=== PATIENT | female | born 1965 | race Caucasian/White ===

== ENCOUNTER → 2017-04-20 | Day surgery (SDC) | payer OTHER ==
[~2017-04-20] MED LIST: AMLODIPINE BESY10 MG PO; ASPIR-LOW81 MG PO; ASPIRIN325 MG PO; ASPIRIN81 MG; BUSPIRONE HCL7.5 MG PO; CLOPIDOGREL75 MG PO; EFFIENT10 MG PO; EPHEDRINE SULFATE INJ 50 MG/10 ML SYR ONE; FENTANYL CITRATE/PF 100MCG/2 ML INJ ONE; FUROSEMIDE40 MG PO; GABAPENTIN100 MG PO; HYOSCYAMINE SULFATE 0.5 MG/ML AMP ONE; INSULIN LISPRO SQ; INSULIN REGULAR, HUMAN 100 UNIT/1 ML 3ML VIAL ONE; Iron PO; LIDOCAINE HCL 2% LOCAL INJ 5 ML SDV VIAL INJ ONE; LIPITOR20 MG PO; LISINOPRIL40 MG PO; MELOXICAM7.5 MG PO; METFORMIN HCL500 MG PO; MIDAZOLAM HCL 2 MG/2 ML VIAL ONE; NOVOLOG MI100 UNITS/ SQ; NOVOLOG100 UNITS1 SQ; OMEPRAZOLE40 MG PO; PANTOPRAZOLE SO40 MG PO; PIOGLITAZONE45 MG PO; PLAVIX75 MG PO; PROMETHAZINE HC25 M1 PO; PROPOFOL IV EMULSION 10 MG/ML 50 ML VIAL ONE; SUCRALFATE1 GM PO; TOPROL XL50 MG PO; TRAMADOL 50 MG; TRICOR145 MG PO; TYLENOL # 31 EA PO; TYLENOL WITH C1 EACH PO; XANAX0.5 MG; [UNRECOGNIZED DRUG - OTHER] SQ
--- NOTE | 2017-04-20 09:40 | Operative Report ---
DATE OF PROCEDURE: April 20, 2017 REFERRING PHYSICIAN: Harrison Quinteros MD PROCEDURE PERFORMED: Colonoscopy with polypectomy and biopsies. INDICATIONS FOR COLONOSCOPY: Colorectal cancer screening, personal history of colon cancer, diarrhea, fecal incontinence. MEDICATION: Patient was done under MAC. Please see anesthesiologist's note. PROCEDURE: With the patient in the left lateral decubitus position, the flexible fiberoptic Olympus colonoscope was inserted into the rectum with ease and advanced all the way to the cecum. Mucosa overlying the cecum appeared to be within normal limits. The ileocecal valve was intubated, and the scope was advanced into the terminal ileum. Biopsies were obtained. The scope was then withdrawn back into the colon. It was then withdrawn slowly. One polyp was snared and 1 polyp was hot biopsied from the ascending colon. The transverse colon overall appeared to be within normal limits. The left colon revealed some diffuse erythema and mild to moderate edema, and multiple random biopsies were obtained. The diverticular disease was noted to involve the sigmoid colon. Anastomosis was noted approximately 8 cm from the anal verge and it was intact, and there was no evidence of recurrence. The scope was then retroflexed into the distal rectum, and small internal hemorrhoids were noted, none of which was actively bleeding. The scope was then straightened out. The scope was subsequently withdrawn after securing an adequate stool specimen that was sent for the appropriate stool studies. Patient tolerated the procedure well. IMPRESSION 1. Ascending colon polyps times 2, one snared and one hot biopsied. 2. Colitis, mild, left colon. 3. Diverticulosis. 4. Anastomosis at 8 cm from the anal verge, intact, without evidence of recurrence. 5. Internal hemorrhoids, none actively bleeding. PLAN: Follow up histology. Follow up stool studies. Initiate Bentyl 20 mg 1 p.o. t.i.d. Start VSL #3 one p.o. daily. Patient will need a followup colonoscopy in 2 to 3 years. Job#: [id number] cc:HARRISON QUINTEROS MD
[2017-04-20 13:32] LABS: C DIFFICILE TOXIN A&B AMP PROB NEGATIVE (NEGATIVE); WBC,FECAL (FECAL LACTOFERRIN) NEGATIVE (NEGATIVE)
== END | disposition home or self-care (01) ==
LOC: OR 08:27
PROVIDERS: ATTEND Internal Medicine Gastroenterology
DX: K52.9 Noninfective gastroenteritis and colitis, unspecified (principal); D12.2 Benign neoplasm of ascending colon; Z85.038 Personal history of other malignant neoplasm of large intestine; Z98.0 Intestinal bypass and anastomosis status; K57.30 Diverticulosis of large intestine without perforation or abscess without bleeding; K21.9 Gastro-esophageal reflux disease without esophagitis; K64.8 Other hemorrhoids; I10 Essential (primary) hypertension; E78.5 Hyperlipidemia, unspecified; E11.9 Type 2 diabetes mellitus without complications; F32.9 Major depressive disorder, single episode, unspecified; F41.9 Anxiety disorder, unspecified; Z01.810 Encounter for preprocedural cardiovascular examination; Z79.82 Long term (current) use of aspirin; Z79.4 Long term (current) use of insulin; Z79.02 Long term (current) use of antithrombotics/antiplatelets; Z95.5 Presence of coronary angioplasty implant and graft
CPT/HCPCS: 36415; 45384; 45385; 82948; 83630; 83993; 87045; 87177; 87328; 87493; 93005; J1980; J2001; J2250; 45380

== ENCOUNTER → 2017-08-03 | Day surgery (SDC) | payer OTHER ==
[2017-08-01 10:12] LABS: BASOPHILS # (AUTO) 0.1 (0.0-0.1); BASOPHILS % 0.7 % (0.0-1.0); EOSINOPHILS # (AUTO) 0.2 (0.0-0.4); EOSINOPHILS % 2.3 % (0.0-6.0); HEMATOCRIT 38.9 % (34.2-44.1); HEMOGLOBIN 13.3 g/dL (12.0-16.0); LYMPHOCYTES # (AUTO) 2.6 (1.0-3.2); LYMPHOCYTES % 37.5 % (18.0-39.1); MEAN CORPUSCULAR HEMOGLOBIN 31.3 pg (28-32); MEAN CORPUSCULAR HGB CONC 34.2 g/dL (31-35); MEAN CORPUSCULAR VOLUME 91.5 fL (81-99); MONOCYTES # (AUTO) 0.4 (0.2-0.8); MONOCYTES % 6.3 % (4.4-11.3); NEUTROPHILS # (AUTO) 3.6 (2.1-6.9); NEUTROPHILS % 52.2 % (38.7-80.0); PLATELET COUNT 248 x10e3/uL (140-360); RED BLOOD COUNT 4.25 x10e6/uL (3.6-5.1); RED CELL DISTRIBUTION WIDTH 13.1 % (11.7-14.4)
[2017-08-01 10:28] LABS: ANION GAP 12.3 mmol/L (8-16); BLOOD UREA NITROGEN 8 mg/dL (7-26); BUN/CREATININE RATIO 12 (6-25); CALCIUM 9.8 mg/dL (8.4-10.2); CARBON DIOXIDE 29 mmol/L (22-29); CHLORIDE 101 mmol/L (98-107); CREATININE, SERUM 0.68 mg/dL (0.57-1.11); EST GLOMERULAR FILTRATION RATE > 60 ML/MIN (60-); GLUCOSE 129 mg/dL (74-118); POTASSIUM 4.3 mmol/L (3.5-5.1); SODIUM 138 mmol/L (136-145)
[~2017-08-03] MED LIST changes: +BUPIVACAINE 0.25%/EPI 30ML SDV INJ ONE; +DEXAMETHASONE SOD PHOS INJ 4 MG/ML VIAL ONE; -EPHEDRINE SULFATE INJ 50 MG/10 ML SYR ONE; -FENTANYL CITRATE/PF 100MCG/2 ML INJ ONE; -HYOSCYAMINE SULFATE 0.5 MG/ML AMP ONE; -INSULIN REGULAR, HUMAN 100 UNIT/1 ML 3ML VIAL ONE; +ONDANSETRON HCL INJ 2 MG/ML VIAL ONE; +PROPOFOL IV EMULSION 10 MG/ML 20 ML VIAL ONE; -PROPOFOL IV EMULSION 10 MG/ML 50 ML VIAL ONE; +SEVOFLURANE INHAL SOLN 250 ML PEN BTL ONE
--- OUTSIDE RECORDS SUMMARY | 2017-08-03 09:00 | XMS REPORT | Clinical Summary ---
Author Author [facility] Organization [facility] Address Unknown Phone Unavailable Care Team Providers Care Field Staff Manager Name Role Phone Jorge Peres MD PCP Unavailable Allergies Not on File Current Medications Not on file Active Problems Not on file Encounters Date Type Specialty Care Team Description 06/01/2017 Hospital Radiology Shekhar Reilly, Screening breast Encounter MD examination 05/24/2017 Transcribe Access Shekhar Reilly, Screening breast Orders MD examination (Primary Dx) after 08/02/2016 Social History Tobacco Use Types Packs/Day Years Used Date Never Assessed Sex Assigned at Date Recorded Not on file Last Filed Vital Signs Not on file Plan of Treatment Health Maintenance Due Date Last Done Comments CERVICAL CANCER SCREENING 1986 COLON CANCER SCREENING 12/15/2015 SHINGRIX VACCINE (#1) 12/15/2015 INFLUENZA VACCINE 10/17/2017 BREAST CANCER SCREENING 06/02/2019 06/01/2017, 03/28/2012 Results * Mammo Screening w Cad Bilateral (06/01/2017 10:47 AM) Specimen Performing Laboratory [facility] [address] [place] [address] Narrative EXAMINATION: MAMMO SCREENING W CAD BILATERAL COMPARISON:03/28/2012 TECHNIQUE: Bilateral digital screening mammography was performed and interpreted using computer-assisted detection. CLINICAL HISTORY: Screening mammogram.The patient has no current breast complaints. FINDINGS: There are scattered areas of fibroglandular density. There is a right intramammary lymph node, overall decrease in size since 2013 mammogram. A Port-A-Cath is seen overlying the left pectoralis muscle and left superior posterior breast, limiting evaluation of the breast tissue in this location. No significant masses, calcifications, or other findings are seen in either breast. There has been no significant interval change. IMPRESSION: There is no mammographic evidence of malignancy. Recommend annual screening mammogram and correlation with physical examination. BI-RADS 2:BENIGN This facility is accredited by the [employer] for Mammography. A negative x-ray report should not delay biopsy if a dominant or clinically suspicious mass is present.Not all cancers are identified by x-ray. [id number] after 08/02/2016 Insurance Payer Benefit Subscriber ID Type Phone Address Plan / Group [employer] OPEN xxxxxxxxxxx HMO ACCESS/NET WORK
--- NOTE | 2017-08-03 13:30 | Operative Report ---
DATE OF PROCEDURE: August 03, 2017 PREOPERATIVE DIAGNOSIS: Malfunctioning venous access port. POSTOPERATIVE DIAGNOSIS: Malfunctioning venous access port. OPERATION PERFORMED: Removal of left subclavian venous access port. SURGEON: Dr. Attila Thornton. ANESTHESIA: General. COMPLICATIONS: None. ESTIMATED BLOOD LOSS: Minimal. DESCRIPTION OF PROCEDURE: With the patient lying in bed in the supine position under good general anesthesia, the left chest was prepped with Betadine solution and draped in the usual manner. The area overlying the Port-A-Cath was then infiltrated with 1/4 percent Marcaine solution. An incision was made and was carried down through the subcutaneous tissue and through the capsule. The 4 silk sutures on the Port-A-Cath were removed. The Port-A-Cath was removed without any difficulty. After this was done, hemostasis was ascertained. The capsule was then closed with interrupted sutures of 3-0 Vicryl. The subcutaneous tissue was approximated with 4-0 Vicryl and the skin was closed with subcuticular 5-0 Vicryl. Benzoin, Steri-Strips and Band-Aids were applied. The sponge, lap and needle count was correct. Patient tolerated the procedure well and returned to the recovery room in stable condition. Job#: [id number] ELDA
== END | disposition home or self-care (01) ==
LOC: OR 08:58
PROVIDERS: ATTEND Surgery
CPT/HCPCS: 36415; 80048; 82948; 85025; 93005; J1100; J2001; J2250; J2405

== ENCOUNTER → 2018-07-05 | Day surgery (SDC) | payer OTHER ==
[~2018-07-05] MED LIST changes: +AMBIEN10 MG PO; -BUPIVACAINE 0.25%/EPI 30ML SDV INJ ONE; -DEXAMETHASONE SOD PHOS INJ 4 MG/ML VIAL ONE; +FENTANYL CITRATE/PF 100MCG/2 ML INJ ONE; +HYOSCYAMINE SULFATE 0.5 MG/ML INJ ONE; +LASIX40 MG PO; -LIDOCAINE HCL 2% LOCAL INJ 5 ML SDV VIAL INJ ONE; +METOPROLOL TART50 MG PO; +NORCO 10-325 T1 EACH PO; -ONDANSETRON HCL INJ 2 MG/ML VIAL ONE; +PIOGLITAZONE HC45 MG PO; +PROPOFOL IV EMULSION 10 MG/ML 50 ML VIAL ONE; -SEVOFLURANE INHAL SOLN 250 ML PEN BTL ONE
--- OUTSIDE RECORDS SUMMARY | 2018-07-05 12:46 | XMS REPORT | Clinical Summary ---
Author Author [facility] Address Unknown Phone Unavailable Care Team Providers Care Salon Manager Name Role Phone Harrison Peres MD PCP Allergies No Known Allergies Medications End Date Status Medication Sig Dispensed Refills Start Date Active gabapentin (NEURONTIN) 0 100 mg capsule 8 Active fenofibrate (TRICOR) 145 0 MG tablet 8 Active metFORMIN (GLUCOPHAGE) 0 500 mg tablet 8 Active atorvastatin (LIPITOR) 80 0 MG tablet 8 Active lisinopril 0 (PRINIVIL,ZESTRIL) 40 mg 8 tablet Active ALPRAZolam (XANAX) 0.5 MG 0 tablet 8 Active pioglitazone (ACTOS) 45 0 MG tablet 8 Active clopidogrel (PLAVIX) 75 0 mg tablet 8 Active zolpidem (AMBIEN) 10 mg 0 tablet 9 Active HYDROcodone-acetaminophen 0 (NORCO) 10-325 mg per 9 tablet Active insulin lispro (HumaLOG) Inject under 0 100 unit/mL injection the skin 3 (three) times a day before meals. Active Problems No known active problems Encounters Care Team Description Date Type Specialty Rabia Gupta MD Allergic rhinitis, unspecified seasonality, unspecified trigger (Primary Dx); Sensorineural hearing loss, bilateral; Nasal polyposis; Deviated septum 04/29/2018 Office Visit Otolaryngology Rabia Gupta MD Nasal polyposis (Primary Dx); Recurrent epistaxis 04/19/2018 Office Visit Otolaryngology after 07/04/2017 Social History Date Tobacco Use Types Packs/Day Years Used Never Smoker Smokeless Tobacco: Never Used Alcohol Use Drinks/Week oz/Week Comments No Alcohol Habits Answer Date Recorded How often do you have a drink containing alcohol? Never 04/19/2018 How many drinks containing alcohol do you have on Not asked a typical day when you are drinking? How often do you have six or more drinks on one Not asked occasion? Sex Assigned at Date Recorded Not on file Industry Job Start Date Occupation Not on file Not on file Not on file Travel End Travel History Travel Start No recent travel history available. Last Filed Vital Signs Time Taken Vital Sign Reading 04/29/2018 9:47 AM COAT ROOM ATTENDANT Blood Pressure 119/79 04/29/2018 9:47 AM COAT ROOM ATTENDANT Pulse 90 - Temperature - - Respiratory Rate - - Oxygen Saturation - - Inhaled Oxygen - Concentration 04/29/2018 9:47 AM COAT ROOM ATTENDANT Weight 84.8 kg (187 lb) 04/29/2018 9:47 AM COAT ROOM ATTENDANT Height 160 cm (5' 3") 04/29/2018 9:47 AM COAT ROOM ATTENDANT Body Mass Index 33.13 Plan of Treatment Health Maintenance Due Date Last Done Comments CERVICAL CANCER SCREENING 1986 COLON CANCER SCREENING 12/15/2015 SHINGLES VACCINES (#1) 12/15/2015 INFLUENZA VACCINE 10/17/2018 BREAST CANCER SCREENING 06/02/2019 06/01/2017, 03/28/2012 Results Not on fileafter 07/04/2017 Insurance Payer Benefit Subscriber ID Type Phone Address Plan / Group C[employer] C[employer] OPEN xxxxxxxxxxx HMO ACCESS/NET WORK Advance Directives Patient has advance care planning documents on file. For more information, roland ortiz contact: Jack Littlejohn [address] [place] [address]
[2018-07-05 16:05] VITALS: BP 124/74
[2018-07-05 17:03] LABS: WBC,FECAL (FECAL LACTOFERRIN) NEGATIVE (NEGATIVE)
--- NOTE | 2018-07-05 21:07 | Operative Report ---
DATE OF PROCEDURE: 07/05/2018 SURGEON: Ozzy Carr MD PROCEDURE: Colonoscopy and polypectomy. REFERRING PHYSICIAN: Dr. Harrison Peres and Dr. Shekhar Reilly INDICATIONS FOR COLONOSCOPY: Surveillance colonoscopy, personal history of colon cancer, diarrhea. MEDICATIONS: The patient was done under MAC, please see anesthesiologist's note. PROCEDURE IN DETAIL: With the patient in left lateral decubitus position, a flexible fiberoptic Olympus colonoscope was inserted into the rectum with ease and advanced all the way to the cecum. It was then withdrawn slowly. Mucosa overlying the cecum appeared to be within normal limits. The ileocecal valve was intubated and the scope was advanced into the terminal ileum. Biopsies were obtained. The scope was then withdrawn back into the colon. It was then withdrawn slowly and one polyp was snared from the ascending colon. The rest of the ascending and the transverse revealed some patchy areas of mild inflammatory changes and biopsies were obtained. The mucosa overlying the left colon revealed more pronounced inflammatory changes and multiple random biopsies were obtained. There was some diverticular disease noted in the distal descending and the sigmoid colon. Anastomosis was noted at approximately 8 cm from the anal verge. A minute nodule was noted at the anastomosis and that was removed per hot biopsy forceps. The scope was then retroflexed into the distal rectum and small internal hemorrhoids were noted, none of which was actively bleeding. The scope was then straightened out and was subsequently withdrawn after securing an adequate stool specimen that was sent for the appropriate stool studies. The patient tolerated the procedure well. IMPRESSION: 1. Ascending colon polyp snared. 2. Mild patchy colitis, more pronounced in the left colon. 3. Diverticulosis. 4. Minute polyp, anastomosis, hot biopsied. 5. Internal hemorrhoids none actively bleeding. PLAN: Follow up histology. Follow up stool studies. Increase Colestid to 1 g p.o. b.i.d. Continue VSL #3 one p.o. daily. The patient might benefit from a followup colonoscopy in 2 to 3 years. Ozzy Carr MD [facility] [place]/JULIANNEL /[id number] cc: MD Harrison Cantu MD
[2018-07-06 15:34] LABS: C DIFFICILE TOXIN A&B AMP PROB NEGATIVE (NEGATIVE)
== END | disposition home or self-care (01) ==
LOC: OR 10:50
PROVIDERS: ATTEND Internal Medicine Gastroenterology
DX: K52.9 Noninfective gastroenteritis and colitis, unspecified (principal); D12.2 Benign neoplasm of ascending colon; K57.30 Diverticulosis of large intestine without perforation or abscess without bleeding; Z98.0 Intestinal bypass and anastomosis status; K64.8 Other hemorrhoids; E11.9 Type 2 diabetes mellitus without complications; I10 Essential (primary) hypertension; I25.10 Atherosclerotic heart disease of native coronary artery without angina pectoris; E78.5 Hyperlipidemia, unspecified; I25.2 Old myocardial infarction; Z79.82 Long term (current) use of aspirin; Z79.02 Long term (current) use of antithrombotics/antiplatelets; Z79.4 Long term (current) use of insulin; Z68.33 Body mass index [BMI] 33.0-33.9, adult; Z85.038 Personal history of other malignant neoplasm of large intestine; Z95.5 Presence of coronary angioplasty implant and graft; Z80.0 Family history of malignant neoplasm of digestive organs
CPT/HCPCS: 36415; 45380; 45384; 45385; 82948; 83630; 83993; 87045; 87177; 87328; 87493; J1980; J2250; J2704 ×2; 45378

== ENCOUNTER 2024-03-06 07:28 | Inpatient (IN) | payer MEDICARE, OTHER ==
[~2024-03-06] VITALS: Ht 160 cm; Wt 99.8 kg
[2024-03-06] VITALS (7 sets, daily range): BP systolic 155–160; BP diastolic 69–71; PULSE 70–71; RESP 18; TEMP 98.4–99.1; O2SAT 100
[~2024-03-06 07:28] MED LIST changes: -FENTANYL CITRATE/PF 100MCG/2 ML INJ ONE; -HYOSCYAMINE SULFATE 0.5 MG/ML INJ ONE; -MIDAZOLAM HCL 2 MG/2 ML VIAL ONE; -PROPOFOL IV EMULSION 10 MG/ML 20 ML VIAL ONE; -PROPOFOL IV EMULSION 10 MG/ML 50 ML VIAL ONE
[2024-03-06] MEDS ORDERED: SODIUM CHLORIDE 0.9% 250ML 250 ML IV ONE (07:45)
[2024-03-06 08:17] LABS: BASOPHILS # (AUTO) 0.1 (0.0-0.1); BASOPHILS % 0.7 % (0.0-1.0); EOSINOPHILS # (AUTO) 1.1 (0.0-0.4); EOSINOPHILS % 16.3 % (0.0-6.0); LYMPHOCYTES # (AUTO) 1.5 (1.0-3.2); LYMPHOCYTES % 22.9 % (18.0-39.1); MEAN CORPUSCULAR HEMOGLOBIN 31.9 pg (28-32); MEAN CORPUSCULAR HGB CONC 30.5 g/dL (31-35); MEAN CORPUSCULAR VOLUME 104.8 fL (81-99); MONOCYTES # (AUTO) 0.3 (0.2-0.8); MONOCYTES % 4.5 % (4.4-11.3); NEUTROPHILS # (AUTO) 3.6 (2.1-6.9); NEUTROPHILS % 53.5 % (38.7-80.0); PLATELET COUNT 260 x10e3/uL (140-360); RED BLOOD COUNT 1.88 x10e6/uL (3.6-5.1); WHITE BLOOD COUNT 6.73 x10e3/uL (4.8-10.8)
[2024-03-06 08:24] LABS: HEMATOCRIT 19.7 % (34.2-44.1)
[2024-03-06 08:33] LABS: ALBUMIN 3.3 g/dL (3.5-5.0); ALBUMIN/GLOBULIN RATIO 0.8 (0.8-2.0); ANION GAP 15.9 mmol/L (8-16); BILIRUBIN,TOTAL 1.3 mg/dL (0.2-1.2); CALCIUM 8.7 mg/dL (8.4-10.2); CREATININE, SERUM 1.71 mg/dL (0.57-1.11); TOTAL PROTEIN 7.5 g/dL (6.5-8.1)
[2024-03-06 08:38] LABS: POTASSIUM 2.9 mmol/L (3.5-5.1)
[2024-03-06] MEDS ORDERED: SODIUM CHLORIDE FLUSH 10 ML SYR INJ PRN (08:45)
[2024-03-06] MEDS ORDERED: ONDANSETRON HCL INJ 2MG/ML 2ML 2 MG/ML VIAL IV PRN (08:45)
[2024-03-06] MEDS ORDERED: OZEMPIC1 MG/0.71 SQ (08:46)
[2024-03-06] MEDS: POTASSIUM CHLORIDE 20MEQ/100ML 100 ML IV SCH (09:15)
[2024-03-06] MEDS: SODIUM CHLORIDE 0.9% 1000ML 1,000 ML IV ONE ×2 (09:15→09:23)
[2024-03-06 09:41] LABS: FERRITIN 462.09 ng/mL (4.63-204.00)
[2024-03-06 10:04] LABS: BASOPHILS % (MANUAL) 1 % (0-1.5); EOSINOPHILS % (MANUAL) 14 % (0-7); LYMPHOCYTES % (MANUAL) 19 % (19-48); MONOCYTES % (MANUAL) 5 % (3.4-9.0); MYELOCYTES % (MANUAL) 1 % (0-0); NEUTROPHILS % (MANUAL) 60 % (40-74); PLATELET ESTIMATE ADEQUATE; PLATELET MORPHOLOGY COMMENT NORMAL; RBC MORPHOLOGY COMMENT NORMAL
[2024-03-06] MEDS ORDERED: SODIUM CHLORIDE 0.9% 250ML 250 ML ONE (13:35)
[2024-03-06] MEDS ORDERED: HYDROCODONE/APAP 10MG-325MG TAB PO SCH (17:59)
[2024-03-06] MEDS: METFORMIN HCL 500 MG TAB PO SCH (18:42)
[2024-03-06] MEDS: PIOGLITAZONE HCL 45 MG TAB PO SCH (18:43)
[2024-03-06] MEDS: GABAPENTIN 300 MG CAP PO SCH (20:43)
[2024-03-06] MEDS: METOPROLOL TARTRATE 25 MG TAB PO SCH (20:47)
[2024-03-06] MEDS: ATORVASTATIN 40 MG TAB PO SCH (20:48)
[2024-03-06] MEDS: FUROSEMIDE 40 MG TAB PO SCH (20:49)
[2024-03-06] MEDS: LISINOPRIL 20 MG TAB PO SCH (20:49)
[2024-03-06] MEDS: FENOFIBRATE 145 MG TAB PO SCH (20:49)
[2024-03-06] MEDS: CLOPIDOGREL BISULFATE 75 MG TAB PO SCH (20:49)
[2024-03-06] MEDS: HYDROCODONE/APAP 10MG-325MG TAB PO SCH (20:50)
[2024-03-06] MEDS ORDERED: ZOLPIDEM TARTRATE 10 MG TAB PO PRN (21:00)
[2024-03-06] MEDS ORDERED: NON-FORMULARY MEDICATION (Lisinopril 40 MG) PO SCH (21:00)
[2024-03-07] VITALS (8 sets, daily range): BP systolic 126–172; BP diastolic 53–85; PULSE 62–69; RESP 18–20; TEMP 97.5–98.6; O2SAT 98–100
[2024-03-07 05:51] LABS: BASOPHILS # (AUTO) 0.1 (0.0-0.1); BASOPHILS % 0.9 % (0.0-1.0); EOSINOPHILS # (AUTO) 0.8 (0.0-0.4); EOSINOPHILS % 12.2 % (0.0-6.0); LYMPHOCYTES # (AUTO) 1.5 (1.0-3.2); LYMPHOCYTES % 22.6 % (18.0-39.1); MEAN CORPUSCULAR HEMOGLOBIN 31.7 pg (28-32); MEAN CORPUSCULAR VOLUME 95.8 fL (81-99); MONOCYTES # (AUTO) 0.2 (0.2-0.8); MONOCYTES % 3.6 % (4.4-11.3); NEUTROPHILS # (AUTO) 3.7 (2.1-6.9); NEUTROPHILS % 57.6 % (38.7-80.0); PLATELET COUNT 241 x10e3/uL (140-360); WHITE BLOOD COUNT 6.45 x10e3/uL (4.8-10.8)
[2024-03-07 05:56] LABS: HEMOGLOBIN 7.6 g/dL (12.0-16.0)
[2024-03-07 06:19] LABS: ALBUMIN 2.9 g/dL (3.5-5.0); ALBUMIN/GLOBULIN RATIO 0.9 (0.8-2.0); ANION GAP 13.3 mmol/L (8-16); BILIRUBIN,TOTAL 1.5 mg/dL (0.2-1.2); CALCIUM 7.9 mg/dL (8.4-10.2); CREATININE, SERUM 1.46 mg/dL (0.57-1.11); TOTAL PROTEIN 6.2 g/dL (6.5-8.1)
[2024-03-07 06:20] LABS: POTASSIUM 3.3 mmol/L (3.5-5.1)
[2024-03-07 07:09] LABS: EOSINOPHILS % (MANUAL) 11 % (0-7); LYMPHOCYTES % (MANUAL) 16 % (19-48); MONOCYTES % (MANUAL) 9 % (3.4-9.0); NEUTROPHILS % (MANUAL) 64 % (40-74)
[2024-03-07 07:10] LABS: ANISOCYTOSIS SLIGHT; HYPOCHROMASIA SLIGHT; PLATELET ESTIMATE ADEQUATE; PLATELET MORPHOLOGY COMMENT NORMAL
[2024-03-07] MEDS ORDERED: FUROSEMIDE 40 MG TAB PO SCH (09:00)
[2024-03-07] MEDS ORDERED: METOPROLOL TARTRATE 50 MG TAB PO SCH (09:00)
[2024-03-08] VITALS: BP 149/67; PULSE 72; RESP 18; TEMP 98.3; O2SAT 100
[2024-03-08 04:00] VITALS: BP 151/77; PULSE 68; RESP 17; TEMP 98.5; O2SAT 100
[2024-03-08 07:00] VITALS: BP_SYST 169; BP_SYST 176; BP_DIAS 102; BP_DIAS 62; PULSE 64; PULSE 65; RESP 18; RESP 20; TEMP 97.5; TEMP 98.4; O2SAT 100
[2024-03-08 08:49] VITALS: BP 176/62; PULSE 65; RESP 18; TEMP 98.4; O2SAT 100
[2024-03-08 09:20] VITALS: BP 176/62; PULSE 65; RESP 18; TEMP 98.4; O2SAT 100
[2024-03-08 13:50] VITALS: PULSE 64; RESP 20; TEMP 97.3; O2SAT 100
[2024-03-08 14:07] LABS: HEMOGLOBIN 7.7 g/dL (12.0-16.0)
[2024-03-08 14:11] LABS: HEMATOCRIT 15.9 % (34.2-44.1)
== END 2024-03-08 15:09 | disposition home or self-care (01) | DRG 812 ==
LOC: ER 07:38 → ERHOLD 08:42 → MED/SURG2 09:40
PROVIDERS: ADMIT Internal Medicine; ATTEND Internal Medicine
PROC: 30233N1 Transfusion of Nonautologous Red Blood Cells into Peripheral Vein, Percutaneous Approach (ICD-10-PCS; principal; 2024-03-06)
DX: D64.9 Anemia, unspecified (principal); N17.9 Acute kidney failure, unspecified; E87.6 Hypokalemia; I10 Essential (primary) hypertension; E78.5 Hyperlipidemia, unspecified; E11.9 Type 2 diabetes mellitus without complications; Z79.4 Long term (current) use of insulin; Z79.84 Long term (current) use of oral hypoglycemic drugs; E66.01 Morbid (severe) obesity due to excess calories; Z68.39 Body mass index [BMI] 39.0-39.9, adult; Z85.038 Personal history of other malignant neoplasm of large intestine
CPT/HCPCS: 36415; 80053; 82728; 82948; 83010; 83540; 83615; 83735; 84466; 85014; 85018; 85025; 85045; 86850; 86900; 86920; 99284; J3480; J7030; J7050; P9016